=== PATIENT | female | born 1995 | race American Indian/Alaskan Native ===

== ENCOUNTER 2016-09-25 00:24 | Emergency (ER) | payer MEDICAID ==
--- NOTE | 2016-09-25 01:29 | Emergency Department Report ---
History of Present Illness - General Chief Complaint: Overdose Stated Complaint: POSSIBLE OD Time Seen by Provider: 09/25/16 01:27 Source: patient Mode of arrival: Ambulatory Limitations: No Limitations - History of Present Illness Initial Comments: This is a 21-year-old female who endorses taking 5 Seroquel tablets that belonged to a roommate at approximately 2215. She states she did this in an effort try to kill herself. She reports this stressor tonight being an argument with boyfriend. She indicates she has tried to harm herself with pills in the past. She does endorse a history of depression as well. She has been on different depression medications in the past but is not currently on anything. He denies any illicit drugs at this time. She denies any homicidal ideations. She denies any auditory or visual hallucinations. MD Complaint: intentional overdose Intent: suicide attempt How Overdose Was Discovered: family/friend present Context: Intentional Overdose: relationship problems Associated Symptoms: depression Treatments Prior to Arrival: none - Related Data Previous Rx's Medication Instructions Recorded Last Taken Type Albuterol Sulfate [Proair 90 mcg IH Q4HR PRN #1 [email or web address] 06/15/16 Unknown Rx Respiclick] Allergies Allergy/AdvReac Type Severity Reaction Status Date / Time aripiprazole [From Abilify] Allergy Unknown Verified 06/15/16 09:14 morphine Allergy Hives Verified 06/15/16 09:13 ED Review of Systems ROS: Stated complaint: POSSIBLE OD Other details as noted in HPI Constitutional: denies: chills, fever Eyes: denies: eye pain, eye discharge, vision change ENT: denies: ear pain, throat pain Respiratory: denies: cough, shortness of breath, wheezing Cardiovascular: denies: chest pain, palpitations Endocrine: no symptoms reported Gastrointestinal: denies: abdominal pain, nausea, diarrhea Genitourinary: denies: urgency, dysuria, discharge Musculoskeletal: denies: back pain, joint swelling, arthralgia Skin: denies: rash, lesions Neurological: denies: headache, weakness, paresthesias Psychiatric: depression, suicidal thoughts. denies: anxiety, auditory hallucinations, visual hallucinations, homicidal thoughts Hematological/Lymphatic: denies: easy bleeding, easy bruising ED Past Medical Hx - Past Medical History Previous Medical History?: Yes Hx Psychiatric Treatment: Yes (Depression BiPolar) Hx Asthma: Yes - Surgical History Past Surgical History?: Yes Additional Surgical History: C section x1 - Social History Smoking Status: Current Some Day Smoker Substance Use Type: Alcohol, Marijuana - Medications Home Medications: Home Medications Medication Instructions Recorded Confirmed Last Taken Type Albuterol Sulfate [Proair 90 mcg IH Q4HR PRN #1 [id number] 06/15/16 Unknown Rx Respiclick] ED Physical Exam - General Limitations: No Limitations General appearance: in no apparent distress, other (sleepy) - Head Head exam: Present: atraumatic, normocephalic - Eye Eye exam: Present: normal appearance - ENT ENT exam: Present: mucous membranes moist - Neck Neck exam: Present: normal inspection - Respiratory Respiratory exam: Present: normal lung sounds bilaterally. Absent: respiratory distress - Cardiovascular Cardiovascular Exam: Present: regular rate, normal rhythm. Absent: systolic murmur, diastolic murmur, rubs, gallop - GI/Abdominal GI/Abdominal exam: Present: soft, normal bowel sounds - Extremities Exam Extremities exam: Present: normal inspection - Back Exam Back exam: Present: normal inspection - Neurological Exam Neurological exam: Present: alert, oriented X3 - Psychiatric Psychiatric exam: Present: normal affect, depressed, suicidal ideation - Skin Skin exam: Present: warm, dry, intact, normal color. Absent: rash ED Course Vital Signs 09/25/16 09/25/16 09/25/16 00:35 01:30 01:54 Temperature 97.7 F 98 F Pulse Rate 81 70 Respiratory 18 16 16 Rate Blood Pressure 107/71 Blood Pressure 107/71 98/59 [Right] O2 Sat by Pulse 100 100 100 Oximetry 09/25/16 09/25/16 09/25/16 02:45 03:43 04:26 Temperature Pulse Rate 75 73 74 Respiratory 16 16 16 Rate Blood Pressure Blood Pressure 88/55 97/51 97/57 [Right] O2 Sat by Pulse 100 100 100 Oximetry - Reevaluation(s) Reevaluation #1: 09/25/16 05:29 Laboratory evaluations of the patient are unremarkable chemistries are unremarkable as well. Urine drug screen is negative salicylate and acetaminophen are also negative. Medically a complete anticipation of the patient clearing. I do believe she needs a few more hours to continue to metabolize the Seroquel before she is considered stable for medical clearance for psychiatric facility further consideration for evaluation. I suspect this occurring by approximately 9 AM. I have placed her on a 1013. She will be assessed by crisis intervention worker this morning for probable placement due to suicidal attempt. ED Medical Decision Making - Lab Data Result diagrams: 09/25/16 01:50 09/25/16 01:50 - EKG Data -: EKG Interpreted by Me EKG shows normal: sinus rhythm, axis, intervals, QRS complexes, ST-T waves Critical care attestation.: If time is entered above; I have spent that time in minutes in the direct care of this critically ill patient, excluding procedure time. ED Disposition Clinical Impression: Suicide attempt Overdose Qualifiers: Encounter type: initial encounter Injury intent: intentional self-harm Qualified Code(s): T50.902A - Poisoning by unspecified drugs, medicaments and biological substances, intentional self-harm, initial encounter Depression Qualifiers: Depression Type: major depressive disorder Major depression recurrence: recurrent Active/Remission status: currently active Major depression episode severity: moderate Qualified Code(s): F33.1 - Major depressive disorder, recurrent, moderate Disposition: DC/TX PSY HOSP/PSY UNIT Is pt being admited?: No Does the pt Need Aspirin: No Condition: Stable Referrals: PRIMARY CARE, [Primary Care Provider] - 3-5 Days
[2016-09-25 01:35] LABS: Urine Drugs of Abuse Note Disclamer
[2016-09-25 01:41] LABS: Bilirubin,Urine NEG (Negative); Blood,Urine NEG (Negative); Ketones,Urine NEG (Negative); Leukocyte Esterase,Urine NEG (Negative); Mucus,Urine FEW /HPF; Nitrite,Urine NEG (Negative); Protein,Urine <15 mg/dL mg/dL (Negative); Urobilinogen,Urine < 2.0 mg/dL (<2.0)
[2016-09-25 02:13] LABS: Basophils % (Auto) 0.9 % (0.0-1.8); Eosinophils % (Auto) 0.7 % (0.0-4.3); Hematocrit 33.6 % (30.3-42.9); Hemoglobin 11.2 gm/dl (10.1-14.3); Mean Corpuscular HGB Conc 33 % (30-34); Mean Corpuscular Volume 76 fl (79-97); Platelet Count 317 K/mm3 (140-440); Red Blood Count 4.43 M/mm3 (3.65-5.03); Red Cell Distribution Width 15.8 % (13.2-15.2); White Blood Count 3.4 K/mm3 (4.5-11.0)
[2016-09-25 02:14] LABS: Mean Corpuscular Hemoglobin 25 pg (28-32)
[2016-09-25 02:24] LABS: INR 0.99 (0.87-1.13)
[2016-09-25 02:30] LABS: Alanine Aminotransferase 7 units/L (7-56); Albumin/Globulin Ratio 1.4 %; Alkaline Phosphatase 54 units/L (35-129); Bilirubin,Total 0.3 mg/dL (0.1-1.2); Blood Urea Nitrogen 6 mg/dL (7-17); Calcium 8.7 mg/dL (8.4-10.2); Carbon Dioxide 23 mmol/L (22-30); Chloride 104.5 mmol/L (98-107); Glucose 94 mg/dL (65-100); Potassium 3.8 mmol/L (3.6-5.0); Sodium 141 mmol/L (137-145); Total Protein 6.8 g/dL (6.3-8.2)
[2016-09-25 02:45] LABS: Anion Gap 17 mmol/L
[2016-09-25] MEDS ORDERED: NACL 0.9% 1000 ML 1,000 ML IV ONE (02:48)
[2016-09-26 07:22] VITALS: BP 109/62
[2016-09-26] MEDS ORDERED: XANAX PO ONE (12:15)
[2016-09-26] MEDS ORDERED: XANAX ONE (12:16)
== END 2016-09-26 12:42 ==
LOC: ED 00:24 → EEVIPCON 00:24 → ED 09-26 12:42
DX: T43.592A Poisoning by other antipsychotics and neuroleptics, intentional self-harm, initial encounter (principal); F33.1 Major depressive disorder, recurrent, moderate; F31.9 Bipolar disorder, unspecified; J45.909 Unspecified asthma, uncomplicated; F17.200 Nicotine dependence, unspecified, uncomplicated; F12.10 Cannabis abuse, uncomplicated; Z88.6 Allergy status to analgesic agent; Z88.8 Allergy status to other drugs, medicaments and biological substances; Y92.89 Other specified places as the place of occurrence of the external cause
CPT/HCPCS: 36415; 80053; 80307; 81001; 81025; 85025; 85610; 93005; 93010; 96360; 96361; 99285; G0480; J7030; 80320